=== PATIENT | male | born 1970 | race Two or more races ===

== ENCOUNTER 2020-08-20 11:16 | Emergency (ER) | payer SELFPAY ==
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
[2020-08-20] MEDS ORDERED: Diphtheria,Pertussis(Acell),Tetanus Vaccine 0.5 ML Syringe IM ONE (11:43)
[2020-08-20] MEDS ORDERED: Lidocaine 1% PF 2 ML SDV INJECT ONE (11:43)
[2020-08-20] MEDS ORDERED: Bacitracin Oint 1 GM U/D Packet TOP ONE (11:43)
== END 2020-08-20 12:10 | disposition home or self-care (01) ==
LOC: MW.ED 11:16
DX: S01.112A Laceration without foreign body of left eyelid and periocular area, initial encounter (principal); W18.2XXA Fall in (into) shower or empty bathtub, initial encounter
CPT/HCPCS: 12011; 90471; 90715; 99282; 99283-25